=== PATIENT | male | born 1990 | race African-American/Black ===

== ENCOUNTER 2025-05-31 14:28 | Inpatient (IN) ==
--- NOTE | 2025-05-31 14:54 | Emergency Department Note ---
Impression & Plan Gastroenteritis and colitis, viral, Acute hypokalemia, Acute dehydration ED Provider Note NAME: PRANAV [id number] ARABELLA AGE: 34 SEX: M : 1990 ARRIVES VIA: Ambulance INFORMANT: Patient, facility staff ED PROVIDER(S): Gulshan Banuelos DO CHIEF COMPLAINT: Diarrhea, abnormal labs HPI: [place] transition program manager used for the entirety of the encounter. Please note that the patient's history was extremely difficult to obtain due to language barriers and transition program manager communication. This is a 34-year-old male who is otherwise healthy presenting to [facility] for further evaluation of abnormal labs. Patient is accompanied by [facility] facility staff who provide additional history. He currently resides in an [facility] facility locally. He has had generalized abdominal pain, nausea, a few episodes of emesis and frequent diarrhea. His symptoms have been ongoing for the past week. He does report international travel but unclear on the locations. They deny fever or chills. No cough or congestion. Denies chest pain or palpitations. No shortness of breath. No urinary complaints. Facility is reporting severe hypokalemia on labs. Patient denies recent changes in medications or OTC supplements. Patient offers no other complaints, today. ADDITIONAL HISTORY OBTAINED: Per HPI Chronic Medical/Social Conditions Affecting Care: Per HPI PAST MEDICAL HISTORY: See Below PAST SURGICAL HISTORY: See Below FAMILY HISTORY: See Below SOCIAL HISTORY: See Below HOME MEDICATIONS: See Below ALLERGIES: See Below VITALS: See Below PHYSICAL EXAMINATION: GENERAL: Sitting up in bed, alert, well appearing, well nourished, no distress, non-toxic EYE EXAM: normal conjunctiva. PERRL and EOM's grossly intact. OROPHARYNX: no exudate, no erythema, lips, buccal mucosa, and tongue normal and mucous membranes are dry NECK: supple, no nuchal rigidity, no adenopathy, non-tender LUNGS: Clear to auscultation. Normal chest wall mechanics HEART: no murmurs, regular rate, regular rhythm ABDOMEN: abdomen soft, non-tender, no masses, no rebound or guarding. BACK: Back is symmetrical on inspection and there is no deformity, no midline tenderness, no CVA tenderness. SKIN: no rashes and no bruising UPPER EXTREMITIES: upper extremities are grossly normal. LOWER EXTREMITIES: No pitting edema. NEURO EXAM: Normal sensorium, GCS 15, normal speech, no gross weakness of arms, no gross weakness of legs. MEDICAL DECISION MAKING: Differential diagnoses includes but not limited to viral illness, infectious diarrhea, electrolyte derangements, dehydration, appendicitis, bowel obstruction, diverticulitis, malignancy, nephrolithiasis, gastroenteritis, ACS, PNA, pancreatitis, hepatobiliary disease, UTI In summary, this is a 34 year old male who presented with diarrhea with abnormal labs. Differential as above. Nursing notes and pertinent past medical records reviewed. Vital signs reviewed and the patient is afebrile and HDS. History and presentation revealed ongoing viral illness that is consistent with viral gastroenteritis; however, I would place him at high risk for other infectious pathology including clostridium difficile. Physical examination revealed as above. As a result of my initial evaluation, IV access was established and the patient was placed on CCRM. Therapeutics ordered include IVFR and potassium replenishment. History was extremely difficult to obtain despite transition program manager. CTAP ordered for further evaluation of his symptoms. Diagnostics interpreted by me include EKG and cardiac monitoring as listed below: -Cardiac Monitoring: An order was placed for continuous cardiac monitoring. The monitor shows a rate of 60-80s with regular rhythm. -ECG: Normal sinus rhythm at a ventricular rate of [address] segment changes to suggest STEMI. Poor baseline on this EKG. Intervals appear to be within normal limits. Patient completed laboratory studies and imaging. Results independently interpreted by me are mild anemia but unclear baseline. Severe hypokalemia noted. AST and alk phos mildly elevated. Negative viral swab. Stool pathogens panel pending. The patient was managed with IV and PO replenishment of potassium ordered. IVFR was ongoing. Patient complains of ongoing issues with a diarrheal illness now with severe hypokalemia. He requires admission for IV fluid resuscitation and ongoing potassium replenishment. Ultimately, the decision was made to admit the patient for severe electrolyte derangements 2/2 GI losses in the setting of viral gastroenteritis. I discussed the case with the hospitalist service via telephone/[employer]iger[employer] and they are agreeable to admit the patient to their services. Based on the above, including the patient's age, coexisting illnesses, labs, imaging, and exam findings the decision to treat as an inpatient. I discussed the patient with the hospitalist team who recommended admission to their services. They received the medications, treatments, interventions indicated above and their condition remained guarded. I discussed my findings with the patient and their family and they understand and agree with the treatment plan. All patient / family questions were answered to their satisfaction. Consults/Care Managements Discussions: Per MDM ER treatment provided: See above Procedures:none Critical Care: None The chart was completed utilizing Share[employer] Speech voice recognition software. Grammatical errors, random word insertions, pronoun errors, and incomplete sentences are an occasional consequence of this system due to software limitations, ambient noise, and hardware issues. Any formal questions or concerns about the content, text, or information contained within the body of this dictation should be directly addressed to the physician for clarification. Past Med/Surg History Problem List (Updated 06/02/25 @ 23:57 by Gulshan Banuelos DO) Acute dehydration (Acute) Acute hypokalemia (Acute) Gastroenteritis and colitis, viral (Acute) Colitis Social History Smoking Status: Never smoker Hx Alcohol Use: No Hx Substance Use: No Preferred Language: [place] Communication Tools: IPad and Other Rehab Technician Required: Yes Beliefs That Will Affect Care: None Current Living Situation: Other Feels Safe at Home: Yes Assistive Devices: None Allergies Allergies Allergy/AdvReac Type Severity Reaction Status Date / Time No Known Allergies Allergy Unverified 05/31/25 15:53 Home Meds Home Medications Medication Instructions Recorded Confirmed omeprazole 20 mg tablet,delayed 20 mg PO DAILY 05/31/25 05/31/25 release Results & Data (ED) Vital Signs Vital Signs - 24 hr 05/31/25 14:22 05/31/25 14:32 05/31/25 14:54 Temperature 36.9 C Temperature Source Oral Pulse Rate 88 71 Pulse Rate from SpO2 Sensor Respiratory Rate 19 17 Respiratory Effort / Characteristics Non-Labored Spontaneous Respiratory Depth Normal Blood Pressure 148/100 H Blood Pressure Mean 116 Pulse Oximetry 97 96 Oxygen Delivery Method Room Air Room Air Sepsis Recent Fever Within 48 Hours No Sepsis New/Unexplained Change in Mental Status No Sepsis Action Taken by Nursing No Action Required 05/31/25 15:00 05/31/25 15:12 05/31/25 15:21 Temperature Temperature Source Pulse Rate 74 63 64 Pulse Rate from SpO2 Sensor Respiratory Rate 15 16 21 Respiratory Effort / Characteristics Respiratory Depth Blood Pressure 148/100 H Blood Pressure Mean 116 Pulse Oximetry 98 Oxygen Delivery Method Sepsis Recent Fever Within 48 Hours Sepsis New/Unexplained Change in Mental Status Sepsis Action Taken by Nursing 05/31/25 15:26 05/31/25 15:30 05/31/25 15:30 Temperature Temperature Source Pulse Rate 66 Pulse Rate from SpO2 Sensor Respiratory Rate Respiratory Effort / Characteristics Respiratory Depth Blood Pressure 127/87 127/87 Blood Pressure Mean 94 94 Pulse Oximetry Oxygen Delivery Method Sepsis Recent Fever Within 48 Hours Sepsis New/Unexplained Change in Mental Status Sepsis Action Taken by Nursing 05/31/25 15:30 05/31/25 15:30 05/31/25 15:30 Temperature Temperature Source Pulse Rate Pulse Rate from SpO2 Sensor Respiratory Rate Respiratory Effort / Characteristics Respiratory Depth Blood Pressure 127/87 127/87 127/87 Blood Pressure Mean 94 94 94 Pulse Oximetry Oxygen Delivery Method Sepsis Recent Fever Within 48 Hours Sepsis New/Unexplained Change in Mental Status Sepsis Action Taken by Nursing 05/31/25 15:30 05/31/25 15:42 05/31/25 15:51 Temperature Temperature Source Pulse Rate 67 71 65 Pulse Rate from SpO2 Sensor Respiratory Rate 16 16 14 Respiratory Effort / Characteristics Respiratory Depth Blood Pressure Blood Pressure Mean Pulse Oximetry 94 Oxygen Delivery Method Sepsis Recent Fever Within 48 Hours Sepsis New/Unexplained Change in Mental Status Sepsis Action Taken by Nursing 05/31/25 16:00 05/31/25 16:00 05/31/25 16:00 Temperature Temperature Source Pulse Rate Pulse Rate from SpO2 Sensor Respiratory Rate Respiratory Effort / Characteristics Respiratory Depth Blood Pressure 120/81 120/81 120/81 Blood Pressure Mean 90 90 90 Pulse Oximetry Oxygen Delivery Method Sepsis Recent Fever Within 48 Hours Sepsis New/Unexplained Change in Mental Status Sepsis Action Taken by Nursing 05/31/25 16:00 05/31/25 16:00 05/31/25 16:12 Temperature Temperature Source Pulse Rate 71 69 Pulse Rate from SpO2 Sensor 70 Respiratory Rate 15 15 Respiratory Effort / Characteristics Respiratory Depth Blood Pressure 120/81 Blood Pressure Mean 90 Pulse Oximetry 99 Oxygen Delivery Method Sepsis Recent Fever Within 48 Hours Sepsis New/Unexplained Change in Mental Status Sepsis Action Taken by Nursing 05/31/25 16:21 05/31/25 16:30 05/31/25 16:30 Temperature Temperature Source Pulse Rate 67 Pulse Rate from SpO2 Sensor 68 Respiratory Rate 16 Respiratory Effort / Characteristics Respiratory Depth Blood Pressure 132/91 132/91 Blood Pressure Mean 108 108 Pulse Oximetry 100 Oxygen Delivery Method Sepsis Recent Fever Within 48 Hours Sepsis New/Unexplained Change in Mental Status Sepsis Action Taken by Nursing 05/31/25 16:30 05/31/25 16:30 05/31/25 16:30 Temperature Temperature Source Pulse Rate Pulse Rate from SpO2 Sensor Respiratory Rate Respiratory Effort / Characteristics Respiratory Depth Blood Pressure 132/91 132/91 132/91 Blood Pressure Mean 108 108 108 Pulse Oximetry Oxygen Delivery Method Sepsis Recent Fever Within 48 Hours Sepsis New/Unexplained Change in Mental Status Sepsis Action Taken by Nursing 05/31/25 16:30 05/31/25 16:42 05/31/25 16:51 Temperature Temperature Source Pulse Rate 67 64 72 Pulse Rate from SpO2 Sensor 67 65 72 Respiratory Rate 15 14 20 Respiratory Effort / Characteristics Respiratory Depth Blood Pressure Blood Pressure Mean Pulse Oximetry 100 100 100 Oxygen Delivery Method Sepsis Recent Fever Within 48 Hours Sepsis New/Unexplained Change in Mental Status Sepsis Action Taken by Nursing 05/31/25 17:06 05/31/25 17:06 05/31/25 17:06 Temperature Temperature Source Pulse Rate Pulse Rate from SpO2 Sensor Respiratory Rate Respiratory Effort / Characteristics Respiratory Depth Blood Pressure 135/91 135/91 135/91 Blood Pressure Mean 110 110 110 Pulse Oximetry Oxygen Delivery Method Sepsis Recent Fever Within 48 Hours Sepsis New/Unexplained Change in Mental Status Sepsis Action Taken by Nursing 05/31/25 17:06 05/31/25 17:06 05/31/25 17:06 Temperature Temperature Source Pulse Rate 69 Pulse Rate from SpO2 Sensor 69 Respiratory Rate 15 Respiratory Effort / Characteristics Respiratory Depth Blood Pressure 135/91 135/91 Blood Pressure Mean 110 110 Pulse Oximetry 99 Oxygen Delivery Method Sepsis Recent Fever Within 48 Hours Sepsis New/Unexplained Change in Mental Status Sepsis Action Taken by Nursing 05/31/25 17:12 05/31/25 17:21 05/31/25 17:30 Temperature Temperature Source Pulse Rate 67 64 Pulse Rate from SpO2 Sensor 67 64 Respiratory Rate 16 18 Respiratory Effort / Characteristics Respiratory Depth Blood Pressure 127/96 Blood Pressure Mean 105 Pulse Oximetry 99 98 Oxygen Delivery Method Sepsis Recent Fever Within 48 Hours Sepsis New/Unexplained Change in Mental Status Sepsis Action Taken by Nursing 05/31/25 17:30 05/31/25 17:30 05/31/25 17:30 Temperature Temperature Source Pulse Rate Pulse Rate from SpO2 Sensor Respiratory Rate Respiratory Effort / Characteristics Respiratory Depth Blood Pressure 127/96 127/96 127/96 Blood Pressure Mean 105 105 105 Pulse Oximetry Oxygen Delivery Method Sepsis Recent Fever Within 48 Hours Sepsis New/Unexplained Change in Mental Status Sepsis Action Taken by Nursing 05/31/25 17:30 05/31/25 17:30 05/31/25 17:42 Temperature Temperature Source Pulse Rate 67 62 Pulse Rate from SpO2 Sensor 68 63 Respiratory Rate 17 31 H Respiratory Effort / Characteristics Respiratory Depth Blood Pressure 127/96 Blood Pressure Mean 105 Pulse Oximetry 99 99 Oxygen Delivery Method Sepsis Recent Fever Within 48 Hours Sepsis New/Unexplained Change in Mental Status Sepsis Action Taken by Nursing 05/31/25 17:51 05/31/25 18:00 05/31/25 18:00 Temperature Temperature Source Pulse Rate 63 Pulse Rate from SpO2 Sensor 63 Respiratory Rate 20 Respiratory Effort / Characteristics Respiratory Depth Blood Pressure 125/89 125/89 Blood Pressure Mean 94 94 Pulse Oximetry 99 Oxygen Delivery Method Sepsis Recent Fever Within 48 Hours Sepsis New/Unexplained Change in Mental Status Sepsis Action Taken by Nursing 05/31/25 18:00 05/31/25 18:00 05/31/25 18:00 Temperature Temperature Source Pulse Rate Pulse Rate from SpO2 Sensor Respiratory Rate Respiratory Effort / Characteristics Respiratory Depth Blood Pressure 125/89 125/89 125/89 Blood Pressure Mean 94 94 94 Pulse Oximetry Oxygen Delivery Method Sepsis Recent Fever Within 48 Hours Sepsis New/Unexplained Change in Mental Status Sepsis Action Taken by Nursing 05/31/25 18:00 05/31/25 18:12 05/31/25 18:21 Temperature Temperature Source Pulse Rate 67 68 67 Pulse Rate from SpO2 Sensor 65 70 64 Respiratory Rate 18 14 18 Respiratory Effort / Characteristics Respiratory Depth Blood Pressure Blood Pressure Mean Pulse Oximetry 99 99 94 Oxygen Delivery Method Sepsis Recent Fever Within 48 Hours Sepsis New/Unexplained Change in Mental Status Sepsis Action Taken by Nursing 05/31/25 18:30 05/31/25 18:30 05/31/25 18:30 Temperature Temperature Source Pulse Rate Pulse Rate from SpO2 Sensor Respiratory Rate Respiratory Effort / Characteristics Respiratory Depth Blood Pressure 128/94 128/94 128/94 Blood Pressure Mean 101 101 101 Pulse Oximetry Oxygen Delivery Method Sepsis Recent Fever Within 48 Hours Sepsis New/Unexplained Change in Mental Status Sepsis Action Taken by Nursing 05/31/25 18:30 05/31/25 18:30 05/31/25 18:30 Temperature Temperature Source Pulse Rate 65 Pulse Rate from SpO2 Sensor 65 Respiratory Rate 16 Respiratory Effort / Characteristics Respiratory Depth Blood Pressure 128/94 128/94 Blood Pressure Mean 101 101 Pulse Oximetry 98 Oxygen Delivery Method Sepsis Recent Fever Within 48 Hours Sepsis New/Unexplained Change in Mental Status Sepsis Action Taken by Nursing 05/31/25 18:42 05/31/25 18:51 05/31/25 19:00 Temperature Temperature Source Pulse Rate 65 65 Pulse Rate from SpO2 Sensor 65 65 Respiratory Rate 15 17 Respiratory Effort / Characteristics Respiratory Depth Blood Pressure 128/91 Blood Pressure Mean 112 Pulse Oximetry 99 99 Oxygen Delivery Method Sepsis Recent Fever Within 48 Hours Sepsis New/Unexplained Change in Mental Status Sepsis Action Taken by Nursing 05/31/25 19:00 05/31/25 19:00 05/31/25 19:00 Temperature Temperature Source Pulse Rate Pulse Rate from SpO2 Sensor Respiratory Rate Respiratory Effort / Characteristics Respiratory Depth Blood Pressure 128/91 128/91 128/91 Blood Pressure Mean 112 112 112 Pulse Oximetry Oxygen Delivery Method Sepsis Recent Fever Within 48 Hours Sepsis New/Unexplained Change in Mental Status Sepsis Action Taken by Nursing 05/31/25 19:00 05/31/25 19:00 05/31/25 19:33 Temperature Temperature Source Pulse Rate 68 85 Pulse Rate from SpO2 Sensor 68 Respiratory Rate 18 Respiratory Effort / Characteristics Respiratory Depth Blood Pressure 128/91 Blood Pressure Mean 112 Pulse Oximetry 98 Oxygen Delivery Method Sepsis Recent Fever Within 48 Hours Sepsis New/Unexplained Change in Mental Status Sepsis Action Taken by Nursing Laboratory Data 05/31/25 15:05 05/31/25 23:41 Lab Results 05/31/25 05/31/25 05/31/25 Range/Units 14:50 15:05 18:11 WBC 7.87 (4.8-10.8) K/ul RBC 4.96 (4.70-6.10) M/uL Hgb 13.1 L (14.0-18.0) g/dl Hct 39.2 L (42.0-52.0) % MCV 79.0 L (80.0-100.0) fL MCH 26.4 (25.0-34.0) pg MCHC 33.4 (32.0-36.0) g/dL RDW Std Deviation 44.1 (36.4-46.3) fL RDW Coeff of [place] 15.5 H (11.5-14.5) % Plt Count 414 H (130-400) K/uL MPV 8.7 L (9.4-12.4) fL Immature Gran % (Auto) 0.4 % Neut % (Auto) 69.1 % Lymph % (Auto) 21.2 % [place] % (Auto) 8.4 % Eos % (Auto) 0.5 % Baso % (Auto) 0.4 % Neut # (Auto) 5.44 (1.40-6.50) K/uL Lymph # (Auto) 1.67 (1.20-3.40) K/uL [place] # (Auto) 0.66 H (0.11-0.59) K/uL Eos # (Auto) 0.04 (0.00-0.50) K/uL Baso # (Auto) 0.03 (0.00-0.20) K/uL Immature Gran # (Auto) 0.03 (0.01-0.20) K/uL Sodium 141 (136-145) mmol/L Potassium 2.2 L* (3.5-5.1) mmol/L Chloride 104 (98-107) mmol/L Carbon Dioxide 30 (21-32) mmol/L Anion Gap 7 (3-11) BUN 10 (6-23) mg/dl Creatinine 1.02 (0.6-1.4) mg/dl Est Cr Clr Drug Dosing 88.6 ml/min eGFR 98.29 BUN/Creatinine Ratio 9.8 L (10-20) Glucose 137 H (70-99(Fasting)) mg/dl Lactate 1.5 (0.4-2.0) mmol/L Calcium 9.6 (8.6-10.3) mg/dl Magnesium 1.9 (1.7-2.4) mg/dl Total Bilirubin 0.6 (0.2-1.0) mg/dl AST 45 H (13-39) U/L ALT 21 (7-52) U/L Alkaline Phosphatase 150 H (34-104) U/L Total Protein 8.5 H (6.0-8.3) gm/dl Albumin 3.7 (3.4-5.0) gm/dl Globulin 4.8 H (2.5-4.0) gm/dl Albumin/Globulin Ratio 0.8 L (0.9-2) Lipase 32 (11-82) U/L Urine Color Yellow Urine Appearance Clear (Clear) Urine pH 7.5 (4.5-7.5) Ur Specific [place] 1.008 (1.000-1.030) Urine Protein Negative (Negative) Urine Glucose (UA) Negative (Negative) Urine Ketones Negative (Negative) Urine Blood Negative (Negative) Urine Nitrite Negative (Negative) Urine Bilirubin Negative (Negative) Urine Urobilinogen Negative (Negative) Ur Leukocyte Esterase Negative (Negative) Urine Comment Adenovirus (PCR) Not Detected (NotDetected) B. pertussis DNA (PCR) Not Detected (NotDetected) B.parapertussis DNA PCR Not Detected (NotDetected) C. pneumoniae DNA (PCR) Not Detected (NotDetected) Coronavirus OC43 (PCR) Not Detected (NotDetected) Coronavirus HKU1 (PCR) Not Detected (NotDetected) Coronavirus 229E (PCR) Not Detected (NotDetected) SARS-CoV-2 (PCR) Not Detected (NotDetected) Coronavirus NL63 (PCR) Not Detected (NotDetected) Human Metapneumovir PCR Not Detected (NotDetected) Influenza Type A (PCR) Not Detected (NotDetected) Influenza Type B (PCR) Not Detected (NotDetected) M. pneumoniae (PCR) Not Detected (NotDetected) Parainfluenza 1 (PCR) Not Detected (NotDetected) Parainfluenza 2 (PCR) Not Detected (NotDetected) Parainfluenza 3 (PCR) Not Detected (NotDetected) Parainfluenza 4 (PCR) Not Detected (NotDetected) RSV (PCR) Not Detected (NotDetected) Entero/Rhino (PCR) Not Detected (NotDetected) Administered Medications Discontinued Medications Potassium Chloride (K Dariel / Wtr) 10 meq in 100 mls @ 100 mls/hr IV Q1H DONTE Stop: 05/31/25 18:59 Last Infusion: 05/31/25 19:14 Dose: Infused Documented By: Admin: 05/31/25 18:00 Dose: 100 mls/hr Documented By: Infusion: 05/31/25 18:00 Dose: Infused Documented By: Admin: 05/31/25 17:08 Dose: 100 mls/hr Documented By: Infusion: 05/31/25 16:57 Dose: Infused Documented By: Admin: 05/31/25 15:57 Dose: 100 mls/hr Documented By: FLAVIA Magnesium Sulfate/Dextrose (Magnesium Sulfate / D5w) 1 gm in 100 mls @ 100 mls/hr IV NOW STA Stop: 05/31/25 16:51 Last Infusion: 05/31/25 17:41 Dose: Infused Documented By: Admin: 05/31/25 15:57 Dose: 100 mls/hr Documented By: FLAVIA Ioversol (Optiray 320 100ml) 90 ml IV ONCE ONE Stop: 05/31/25 17:02 Last Admin: 05/31/25 17:01 Dose: 90 ml Documented By: DARLEEN Potassium Chloride (Potassium Chloride Crtab 20 Meq Tabcr) 40 meq PO NOW STA Stop: 05/31/25 15:53 Last Admin: 05/31/25 15:57 Dose: 40 meq Documented By: FLAVIA Potassium Chloride (Potassium Chloride Crtab 20 Meq Tabcr) 40 meq PO NOW STA Stop: 05/31/25 19:51 Last Admin: 05/31/25 19:58 Dose: 40 meq Documented By: FLAVIA Imaging Data Radiologist's Impression: Abdomen/Pelvis CT 05/31/25 14:43 EXAM: CT Abdomen With Intravenous Contrast INDICATION: Abdominal pain and diarrhea TECHNIQUE: Axial computed tomography images of the abdomen with intravenous contrast. Sagittal and coronal reformatted images were created and reviewed. This CT exam was performed using one or more of the following dose reduction techniques: automated exposure control, adjustment of the mA and/or kV according to patient size, and/or use of iterative reconstruction technique. CONTRAST: 90 ml of Optiray 320 was administered intravenously. COMPARISON: No relevant prior studies available. FINDINGS: Lung bases: No nodule or consolidation. Pleural space: No pleural effusion or basilar pneumothorax. Liver: No abnormality noted. Gallbladder and bile ducts: No calcified stones or surrounding fluid. No ductal dilation. Pancreas: Poorly assessed in the absence of contrast and the presence of adjacent unopacified bowel loops. Spleen: No acute abnormality noted. Adrenals: No acute abnormality noted. Kidneys and ureters: Simple left renal cysts. No follow-up of these simple cysts is necessary. Right kidney appears normal. Stomach and bowel: Intestinal assessment limited in the absence of contrast. The colon contains a moderate amount of stool and scattered air. It appears mildly thickened without definite surrounding inflammation. Mild prominent fluid in small bowel loops without distention. No visible obstruction. Intraperitoneal space: No free air. No significant fluid collection. Bones/joints: No acute changes. Soft tissues: No acute abnormality noted. Vasculature: No abnormality noted. No abdominal aortic aneurysm. Lymph nodes: No abnormality noted. No enlarged lymph nodes. Other findings: Mildly distended urinary bladder. IMPRESSION: 1. Limited intestinal assessment demonstrating probable pancolitis and mild ileus. 2. Suboptimal assessment of the pancreas. 3. Mildly distended urinary bladder. ACT 112: N/A Electronically signed by Yael Murphy 05-31-2025 7:00 PM Discharge Plan Visit Data Chief Complaint: Referred by Doctor Stated Complaint: ABNORMAL LABS ED Provider: Gulshan Banuelos Discharge Problem: Gastroenteritis and colitis, viral, Acute hypokalemia, Acute dehydration Patient Disposition: Admitted As Inpatient Condition: Fair Discharge Instructions Interventions: ED Discharge Assessment Last Done: 05/31/25 20:58
[2025-05-31 15:28] LABS: Hematocrit (blood only) 39.2 % (42.0-52.0); Hemoglobin 13.1 g/dl (14.0-18.0); Immature Granulocytes # (auto) 0.03 K/uL (0.01-0.20); Immature Granulocytes % (auto) 0.4 %; Mean Corpuscular Hemoglobin 26.4 pg (25.0-34.0); Mean Corpuscular Volume 79.0 fL (80.0-100.0); Platelet Count 414 K/uL (130-400); RDW Standard Deviation 44.1 fL (36.4-46.3); Red Blood Count 4.96 M/uL (4.70-6.10); White Blood Count 7.87 K/ul (4.8-10.8)
[2025-05-31 15:42] LABS: Appearance Urine Clear (Clear); Glucose Urine UA Negative (Negative)
[2025-05-31 15:51] LABS: Alanine Aminotransferase 21.0 U/L (7-52); Albumin Globulin Ratio 0.8 (0.9-2); Albumin Level 3.7 gm/dl (3.4-5.0); Alkaline Phosphatase 150.0 U/L (34-104); Anion Gap 7.0 (3-11); Bilirubin,Total 0.6 mg/dl (0.2-1.0); Blood Urea Nitrogen 10.0 mg/dl (6-23); Calcium 9.6 mg/dl (8.6-10.3); Carbon Dioxide 30.0 mmol/L (21-32); Chloride 104.0 mmol/L (98-107); Creatinine Clr Calc Pharmacy 88.6 ml/min; Globulin 4.8 gm/dl (2.5-4.0); Glucose 137.0 mg/dl (70-99(Fasting)); Lipase 32.0 U/L (11-82); Magnesium 1.9 mg/dl (1.7-2.4); Potassium 2.2 mmol/L (3.5-5.1); Sodium 141.0 mmol/L (136-145); Total Protein 8.5 gm/dl (6.0-8.3)
[2025-05-31] MEDS: POTASSIUM CHLORIDE CRTAB 20 MEQ TABCR PO STA ×2 (15:57→19:58)
[2025-05-31] MEDS: MAGNESIUM SULFATE / D5W 1 GM/100 ML BAG IV STA (15:57)
[2025-05-31] MEDS: POTASSIUM CHLORIDE / WTR 10 MEQ/100 ML PLCT IV SCH (15:57)
[2025-05-31] MEDS: OPTIRAY 320 100ml IV ONE (17:01)
--- NOTE | 2025-05-31 19:01 | CT Scan Report ---
EXAM: CT Abdomen With Intravenous Contrast INDICATION: Abdominal pain and diarrhea TECHNIQUE: Axial computed tomography images of the abdomen with intravenous contrast. Sagittal and coronal reformatted images were created and reviewed. This CT exam was performed using one or more of the following dose reduction techniques: automated exposure control, adjustment of the mA and/or kV according to patient size, and/or use of iterative reconstruction technique. CONTRAST: 90 ml of Optiray 320 was administered intravenously. COMPARISON: No relevant prior studies available. FINDINGS: Lung bases: No nodule or consolidation. Pleural space: No pleural effusion or basilar pneumothorax. Liver: No abnormality noted. Gallbladder and bile ducts: No calcified stones or surrounding fluid. No ductal dilation. Pancreas: Poorly assessed in the absence of contrast and the presence of adjacent unopacified bowel loops. Spleen: No acute abnormality noted. Adrenals: No acute abnormality noted. Kidneys and ureters: Simple left renal cysts. No follow-up of these simple cysts is necessary. Right kidney appears normal. Stomach and bowel: Intestinal assessment limited in the absence of contrast. The colon contains a moderate amount of stool and scattered air. It appears mildly thickened without definite surrounding inflammation. Mild prominent fluid in small bowel loops without distention. No visible obstruction. Intraperitoneal space: No free air. No significant fluid collection. Bones/joints: No acute changes. Soft tissues: No acute abnormality noted. Vasculature: No abnormality noted. No abdominal aortic aneurysm. Lymph nodes: No abnormality noted. No enlarged lymph nodes. Other findings: Mildly distended urinary bladder. IMPRESSION: 1. Limited intestinal assessment demonstrating probable pancolitis and mild ileus. 2. Suboptimal assessment of the pancreas. 3. Mildly distended urinary bladder. ACT 112: N/A Electronically signed by Yael Murphy 05-31-2025 7:00 PM
[2025-05-31 19:13] LABS: Chlamydia pneumoniae PCR Not Detected (NotDetected); Coronavirus 229E PCR Not Detected (NotDetected); Coronavirus CoV-2 (COVID19)PCR Not Detected (NotDetected); Coronavirus HKU1 PCR Not Detected (NotDetected); Coronavirus NL63 PCR Not Detected (NotDetected); Coronavirus OC43PCR Not Detected (NotDetected); Human Metapneumovirus PCR Not Detected (NotDetected); Parainfluenza Virus 1 PCR Not Detected (NotDetected); Parainfluenza Virus 2 PCR Not Detected (NotDetected); Parainfluenza Virus 3 PCR Not Detected (NotDetected); Parainfluenza Virus 4 PCR Not Detected (NotDetected); Respiratory Syncytial VirusPCR Not Detected (NotDetected); Rhinovirus/Enterovirus PCR Not Detected (NotDetected)
[2025-05-31] MEDS ORDERED: ACETAMINOPHEN 325 MG TAB PO PRN (19:52)
[2025-05-31] MEDS ORDERED: ALUMINUM/MAGNESIUM SUSP 30 ML UDC PO PRN (19:52)
[2025-05-31] MEDS ORDERED: ONDANSETRON INJ 2 MG/ML 2 ML VIAL IV PRN (19:52)
--- NOTE | 2025-05-31 19:58 | History & Physical Report ---
Date of Service May 31, 2025 Assessment & Plan (1) Colitis: Plan Likely viral colitis Patient presents with nausea, abdominal pain, diarrhea and noted to have hypokalemia. Patient reported poor appetite prior to arrival. Labs reviewed, hypokalemia noted, CTAP with pancolitis. Patient denies febrile illness, reports improvement in his diarrhea and abdominal pain after coming to the ED. Patient given 70 mEq of potassium in the ED, additional 40 mEq added. Will repeat BMP around 10 PM to follow-up on potassium. Monitor him off of antibiotic, likely viral colitis. Stool PCR and c diff have been sent, await. Clear liquid diet, advance diet as tolerated. DVT prophylaxis: SCDs for now Full code History of Present Illness Chief Complaint: Abnormal labs Primary Care Provider: [facility] 34-year-old male with no significant past medical history was sent from [facility] due to abnormal labs, hypokalemia per guards at bedside. 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 Patient reported he was having abdominal pain and diarrhea up to 4 times a day for about a week prior to arrival, it has been gradually improving in the last 1 to 2 days, reports some nausea but denies vomiting, reports appetite has been on the lower side. Patient reported that his abdominal pain and diarrhea has gotten better since he presented to the ED. Patient denies fever/vomiting/sore throat/cough/chest pain/palpitation/pain or burning with passing urine. Patient denies smoking/alcohol/recreational drug use. Patient denies any home medications. Full code Allergies Allergy/AdvReac Type Severity Reaction Status Date / Time No Known Allergies Allergy Unverified 05/31/25 15:53 Home Medications Medication Instructions Recorded Confirmed Type omeprazole 20 mg tablet,delayed 20 mg PO DAILY 05/31/25 05/31/25 History release Past Med/Surg History Problem List (Updated 05/31/25 @ 20:10 by Rick Torrse MD) Colitis Social History Smoking Status: Never smoker Feels Safe at Home: Yes Review of Systems Review of Systems: Negative otherwise mentioned in HPI. Physical Exam Physical Exam: GENERAL: Alert and oriented x3. NAD, on RA. HEENT: No pallor, no icterus. Pupils equal, round and reactive to light. Oral mucosa moist. NECK: No JVD, no neck masses. HEART: S1 and S2 heard. Regular rate and rhythm. No murmur, no gallop. RESPIRATORY SYSTEM: Normal AP diameter. No accessory muscle use. No wheezing, no crackles. ABDOMEN: Soft, bowel sounds present, nontender, no distention. CENTRAL NERVOUS SYSTEM: No facial droop. Speech is clear. Obeys simple commands. Moves extremities. EXTREMITIES: No edema, no erythema seen. Results & Data Results & Data Vital Signs (Past 12 Hours) Vital Signs Temp Pulse Resp BP Pulse Ox O2 Del Method 05/31/25 19:33 85 05/31/25 19:00 68 18 98 05/31/25 19:00 128/91 05/31/25 19:00 128/91 05/31/25 19:00 128/91 05/31/25 19:00 128/91 05/31/25 19:00 128/91 05/31/25 18:51 65 17 99 05/31/25 18:42 65 15 99 05/31/25 18:30 65 16 98 05/31/25 18:30 128/94 05/31/25 18:30 128/94 05/31/25 18:30 128/94 05/31/25 18:30 128/94 05/31/25 18:30 128/94 05/31/25 18:21 67 18 94 05/31/25 18:12 68 14 99 05/31/25 18:00 67 18 99 05/31/25 18:00 125/89 05/31/25 18:00 125/89 05/31/25 18:00 125/89 05/31/25 18:00 125/89 05/31/25 18:00 125/89 05/31/25 17:51 63 20 99 05/31/25 17:42 62 31 H 99 05/31/25 17:30 67 17 99 05/31/25 17:30 127/96 05/31/25 17:30 127/96 05/31/25 17:30 127/96 05/31/25 17:30 127/96 05/31/25 17:30 127/96 05/31/25 17:21 64 18 98 05/31/25 17:12 67 16 99 05/31/25 17:06 69 15 99 05/31/25 17:06 135/91 05/31/25 17:06 135/05/31/25 17:06 135/05/31/25 17:06 135/05/31/25 17:06 135/05/31/25 16:51 72 20 100 05/31/25 16:42 64 14 100 05/31/25 16:30 67 15 100 05/31/25 16:30 132/91 05/31/25 16:30 132/91 05/31/25 16:30 132/91 05/31/25 16:30 132/91 05/31/25 16:30 132/91 05/31/25 16:21 67 16 100 05/31/25 16:12 69 15 99 05/31/25 16:00 71 15 05/31/25 16:00 120/81 05/31/25 16:00 120/81 05/31/25 16:00 120/81 05/31/25 16:00 120/81 05/31/25 15:51 65 14 05/31/25 15:42 71 16 05/31/25 15:30 67 16 94 05/31/25 15:30 127/87 05/31/25 15:30 127/87 05/31/25 15:30 127/87 05/31/25 15:30 127/87 05/31/25 15:30 127/87 05/31/25 15:26 66 05/31/25 15:21 64 21 05/31/25 15:12 63 16 05/31/25 15:00 74 15 148/100 H 98 05/31/25 14:54 71 17 05/31/25 14:32 96 Room Air 05/31/25 14:22 36.9 C 88 19 148/100 H 97 Room Air
[2025-06-01 00:08] LABS: Anion Gap 5.0 (3-11); Blood Urea Nitrogen 7.0 mg/dl (6-23); Calcium 8.7 mg/dl (8.6-10.3); Carbon Dioxide 31.0 mmol/L (21-32); Chloride 108.0 mmol/L (98-107); Creatinine Clr Calc Pharmacy 103.9 ml/min; Glucose 98.0 mg/dl (70-99(Fasting)); Potassium 2.6 mmol/L (3.5-5.1); Sodium 144.0 mmol/L (136-145)
[2025-06-01] MEDS: POTASSIUM CHLORIDE / WTR 10 MEQ/100 ML PLCT IV SCH ×2 (00:52→10:31)
[2025-06-01] MEDS: POTASSIUM CHLORIDE 20 MEQ/15 ML UDC PO STA (00:52)
[2025-06-01] MEDS: POTASSIUM CHLORIDE CRTAB 20 MEQ TABCR PO STA ×2 (01:53→16:45)
[2025-06-01 06:05] LABS: Adenovirus F 40/41 PCR Not Detected (NotDetected); Campylobacter PCR Not Detected (NotDetected); Enteroaggregative E.coli(EAEC) Not Detected (NotDetected); Shiga-like Toxin E.coli (STEC) Not Detected (NotDetected); Vibrio species PCR Not Detected (NotDetected)
[2025-06-01 09:01] LABS: Hematocrit (blood only) 37.3 % (42.0-52.0); Hemoglobin 12.2 g/dl (14.0-18.0); Mean Corpuscular Hemoglobin 26.2 pg (25.0-34.0); Mean Corpuscular Volume 80.2 fL (80.0-100.0); Platelet Count 381 K/uL (130-400); RDW Standard Deviation 45.6 fL (36.4-46.3); Red Blood Count 4.65 M/uL (4.70-6.10); White Blood Count 6.18 K/ul (4.8-10.8)
[2025-06-01 09:20] LABS: Alanine Aminotransferase 15.0 U/L (7-52); Albumin Globulin Ratio 0.8 (0.9-2); Albumin Level 3.5 gm/dl (3.4-5.0); Alkaline Phosphatase 131.0 U/L (34-104); Anion Gap 6.0 (3-11); Bilirubin,Total 0.8 mg/dl (0.2-1.0); Blood Urea Nitrogen 6.0 mg/dl (6-23); Calcium 9.1 mg/dl (8.6-10.3); Carbon Dioxide 30.0 mmol/L (21-32); Chloride 108.0 mmol/L (98-107); Creatinine Clr Calc Pharmacy 101.6 ml/min; Globulin 4.3 gm/dl (2.5-4.0); Glucose 137.0 mg/dl (70-99(Fasting)); Magnesium 2.1 mg/dl (1.7-2.4); Potassium 2.7 mmol/L (3.5-5.1); Sodium 144.0 mmol/L (136-145); Total Protein 7.8 gm/dl (6.0-8.3)
--- NOTE | 2025-06-01 12:11 | Hospitalist Progress Note ---
Date of Service June 01, 2025 Assessment & Plan (1) Colitis: Plan Likely viral colitis Patient presents with nausea, abdominal pain, diarrhea and noted to have hypokalemia. Patient reported poor appetite prior to arrival. Labs reviewed, hypokalemia noted, CTAP with pancolitis. Patient denies febrile illness, reports improvement in his diarrhea and abdominal pain after coming to the ED. Patient given 70 mEq of potassium in the ED, additional 40 mEq added. Will repeat BMP around 10 PM to follow-up on potassium. Monitor him off of antibiotic, likely viral colitis. Stool PCR and c diff have been sent-have been negative Clear liquid diet, advance diet as tolerated. Clinically better and diet has been started Will get stool for C. difficile toxin prior to discharge Hypokalemia Potassium level is 2.2 on admission and he received quite a few doses of intr avenous potassium since admission Potassium level remains low at 2.7 this morning Will give more intravenous potassium and IV fluid Recheck at 3 PM if normalized and the patient remains asymptomatic will be discharged DVT prophylaxis: SCDs for now Full code Admission and Anticipated Discharge Date Admission Date: May 31, 2025 Subjective 06/01/2025 The patient was seen and examined in telemetry unit He has been feeling a lot better and the diarrhea seems to have improved Denies any other significant symptomsno abdominal pain nausea no vomiting Review of Systems Review of Systems: All systems reviewed and are unremarkable except as noted below Physical Exam Physical Exam: Lying in bed without any acute distress Constitutional: well developed, well nourished and average body habitus; not ill appearing Eyes: PERRL, conjunctivae normal, anicteric sclerae ENMT: external ear and nose normal, oropharynx normal Neck: trachea midline, no thyromegaly Respiratory: no respiratory distress Auscultation: lungs clear to auscultation bilaterally Cardiovascular: Rate/Rhythm: regular rate and regular rhythm; not tachycardic Heart Sounds: normal S1 and normal S2; no murmur Extremities: no edema Gastrointestinal (Abdomen): Inspection/Auscultation: normal bowel sounds; abdomen not distended Percussion/Palpation: abdomen soft; abdomen nontender Musculoskeletal: No acute arthritis involving any of the joint Neurologic: normal touch/pain/proprioception and moves all extremities; no focal motor deficits Psychiatric: A+Ox3, euthymic affect Lymphatic: no cervical or axillary lymphadenopathy Results & Data Results & Data Vital Signs (Past 12 Hours) Vital Signs Temp Pulse Pulse Resp BP Pulse Ox O2 Del Method 06/01/25 08:04 36.7 C 65 18 121/74 98 Room Air 06/01/25 05:50 62 06/01/25 02:24 36.7 C 70 14 131/84 99 Room Air 06/01/25 01:03 68 Laboratory Results Short CBC 05/31/25 06/01/25 Range/Units 15:05 08:41 WBC 7.87 6.18 (4.8-10.8) K/ul Hgb 13.1 L 12.2 L (14.0-18.0) g/dl Hct 39.2 L 37.3 L (42.0-52.0) % Plt Count 414 H 381 (130-400) K/uL BMP 05/31/25 05/31/25 06/01/25 15:05 23:41 08:41 Sodium 141 144 144 Potassium 2.2 L* 2.6 L Chloride 104 108 H Carbon Dioxide 30 31 BUN 10 7 Creatinine 1.02 0.87 Glucose 137 H 98 Calcium 9.6 8.7 06/01/25 06/01/25 06/01/25 08:41 08:41 08:41 Sodium Cancelled Potassium 2.7 L Cancelled Chloride 108 H Cancelled Carbon Dioxide 30 BUN Creatinine Glucose Calcium 06/01/25 06/01/25 06/01/25 08:41 08:41 08:41 Sodium Potassium Chloride Carbon Dioxide Cancelled BUN 6 Cancelled Creatinine 0.89 Cancelled Glucose 137 H Calcium 06/01/25 06/01/25 08:41 08:41 Sodium Potassium Chloride Carbon Dioxide BUN Creatinine Glucose Cancelled Calcium 9.1 Cancelled Liver Function 05/31/25 06/01/25 Range/Units 15:05 08:41 Total Bilirubin 0.6 0.8 (0.2-1.0) mg/dl AST 45 H 31 (13-39) U/L ALT 21 15 (7-52) U/L Alkaline Phosphatase 150 H 131 H (34-104) U/L Albumin 3.7 3.5 (3.4-5.0) gm/dl Urine 05/31/25 Range/Units 14:50 Urine Color Yellow Urine Appearance Clear (Clear) Urine pH 7.5 (4.5-7.5) Ur Specific [place] 1.008 (1.000-1.030) Urine Protein Negative (Negative) Urine Glucose (UA) Negative (Negative) Medications Administered Current Inpatient Medications Acetaminophen (Acetaminophen 325 Mg Tab) 650 mg PO Q4H PRN PRN Reason: Pain or Fever Stop: 06/30/25 19:51 Al Hydrox/Mg Hydrox/Simethicone (Aluminum/Magnesium Susp 30 Ml Udc) 15 ml PO Q4H PRN PRN Reason: Dyspepsia Stop: 06/30/25 19:51 Potassium Chloride/Sodium Chloride (Normal Saline W/20 Meq Kcl) 20 meq in 1,000 mls @ 100 mls/hr IV .Q10H DNOTE Stop: 06/02/25 15:44 Ondansetron HCl (Ondansetron Inj 2 Mg/Ml 2 Ml Vial) 4 mg IV Q6H PRN PRN Reason: Nausea Stop: 06/30/25 19:51
[2025-06-01] MEDS: NSS + 20MEQ KCL 20 MEQ/1,000 ML BAG IV SCH (12:52)
[2025-06-01 16:18] LABS: Anion Gap 6.0 (3-11); Blood Urea Nitrogen 6.0 mg/dl (6-23); Calcium 8.5 mg/dl (8.6-10.3); Carbon Dioxide 30.0 mmol/L (21-32); Chloride 107.0 mmol/L (98-107); Creatinine Clr Calc Pharmacy 83.0 ml/min; Glucose 109.0 mg/dl (70-99(Fasting)); Potassium 2.9 mmol/L (3.5-5.1); Sodium 143.0 mmol/L (136-145)
[2025-06-01 19:27] LABS: Cdiff Toxin B Gene (2yr or >) Negative Cdiff Gene (Neg)
[2025-06-02 10:36] LABS: Anion Gap 5.0 (3-11); Calcium 8.5 mg/dl (8.6-10.3); Carbon Dioxide 30.0 mmol/L (21-32); Chloride 108.0 mmol/L (98-107); Magnesium 1.8 mg/dl (1.7-2.4); Potassium 3.0 mmol/L (3.5-5.1); Sodium 143.0 mmol/L (136-145)
--- NOTE | 2025-06-02 10:39 | Hospitalist Progress Note ---
Date of Service June 02, 2025 Assessment & Plan (1) Colitis: Plan Likely viral colitis Patient presents with nausea, abdominal pain, diarrhea and noted to have hypokalemia. Patient reported poor appetite prior to arrival. Labs reviewed, hypokalemia noted, CTAP with pancolitis. Patient denies febrile illness, reports improvement in his diarrhea and abdominal pain after coming to the ED. Patient given 70 mEq of potassium in the ED, additional 40 mEq added. Will repeat BMP around 10 PM to follow-up on potassium. Monitor him off of antibiotic, likely viral colitis. Stool PCR and c diff have been sent-have been negative Clear liquid diet, advance diet as tolerated. Clinically better and diet has been started Will get stool for C. difficile toxin prior to discharge C. difficile toxin has been negative and the diarrhea is controlled He has been tolerating regular diet and will be discharged this afternoon Elevated liver enzymes Likely secondary to viral pancolitis and is expected to improve with time Hepatitis panel has been sent He will be discharged home Hypokalemia Potassium level is 2.2 on admission and he received quite a few doses of intravenous potassium since admission Potassium level remains low at 2.7 this morning Will give more intravenous potassium and IV fluid Recheck at 3 PM if normalized and the patient remains asymptomatic will be discharged His electrolytes have been normalized and he will be discharged DVT prophylaxis: SCDs for now Full code Admission and Anticipated Discharge Date Admission Date: May 31, 2025 Subjective 06/01/2025 The patient was seen and examined in telemetry unit He has been feeling a lot better and the diarrhea seems to have improved Denies any other significant symptomsno abdominal pain nausea no vomiting 06/02/2025 The patient was seen and examined in telemetry unit He has been feeling much better and does not have any more diarrhea He has been tolerating diet and will be discharged this afternoon Review of Systems Review of Systems: All systems reviewed and are unremarkable except as noted below Physical Exam Physical Exam: Lying in bed without any acute distress Constitutional: well developed, well nourished and average body habitus; not ill appearing Eyes: PERRL, conjunctivae normal, anicteric sclerae ENMT: external ear and nose normal, oropharynx normal Neck: trachea midline, no thyromegaly Respiratory: no respiratory distress Auscultation: lungs clear to auscultation bilaterally Cardiovascular: Rate/Rhythm: regular rate and regular rhythm; not tachycardic Heart Sounds: normal S1 and normal S2; no murmur Extremities: no edema Gastrointestinal (Abdomen): Inspection/Auscultation: normal bowel sounds; abdomen not distended Percussion/Palpation: abdomen soft; abdomen nontender Neurologic: normal touch/pain/proprioception and moves all extremities; no focal motor deficits Psychiatric: A+Ox3, euthymic affect Lymphatic: no cervical or axillary lymphadenopathy Results & Data Results & Data Vital Signs (Past 12 Hours) Vital Signs Temp Pulse Pulse Resp BP Pulse Ox O2 Del Method 06/02/25 07:46 36.6 C 74 19 130/82 99 Room Air 06/02/25 03:31 36.6 C 65 20 120/76 97 Room Air 06/01/25 23:59 62 06/01/25 23:42 36.7 C 53 L 20 124/80 99 Room Air Laboratory Results [facility] 06/01/25 06/02/25 15:44 09:06 Sodium 143 143 Potassium 2.9 L 3.0 L Chloride 107 108 H Carbon Dioxide 30 30 BUN 6 Creatinine 1.09 Glucose 109 H Calcium 8.5 L 8.5 L
[2025-06-02] MEDS: POTASSIUM CHLORIDE CRTAB 20 MEQ TABCR PO STA (11:02)
[2025-06-02] MEDS: POTASSIUM CHLORIDE / WTR 10 MEQ/100 ML PLCT IV SCH (11:03)
[2025-06-02 12:24] LABS: Blood Urea Nitrogen 6.0 mg/dl (6-23); Creatinine Clr Calc Pharmacy 95.2 ml/min; Glucose 109.0 mg/dl (70-99(Fasting))
[2025-06-02 15:37] LABS: Anion Gap 4.0 (3-11); Blood Urea Nitrogen 5.0 mg/dl (6-23); Calcium 8.8 mg/dl (8.6-10.3); Carbon Dioxide 31.0 mmol/L (21-32); Chloride 108.0 mmol/L (98-107); Creatinine Clr Calc Pharmacy 107.6 ml/min; Glucose 85.0 mg/dl (70-99(Fasting)); Potassium 3.9 mmol/L (3.5-5.1); Sodium 143.0 mmol/L (136-145)
--- NOTE | 2025-06-02 15:45 | Discharge Summary ---
Date of Service June 02, 2025 Admission HPI Per Admitting Provider 34-year-old male with no significant past medical history was sent from [facility] due to abnormal labs, hypokalemia per guards at bedside. 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 Patient reported he was having abdominal pain and diarrhea up to 4 times a day for about a week prior to arrival, it has been gradually improving in the last 1 to 2 days, reports some nausea but denies vomiting, reports appetite has been on the lower side. Patient reported that his abdominal pain and diarrhea has gotten better since he presented to the ED. Patient denies fever/vomiting/sore throat/cough/chest pain/palpitation/pain or burning with passing urine. Patient denies smoking/alcohol/recreational drug use. Patient denies any home medications. Full code Admission Exam Per Admitting Provider Physical Exam: GENERAL: Alert and oriented x3. NAD, on RA. HEENT: No pallor, no icterus. Pupils equal, round and reactive to light. Oral mucosa moist. NECK: No JVD, no neck masses. HEART: S1 and S2 heard. Regular rate and rhythm. No murmur, no gallop. RESPIRATORY SYSTEM: Normal AP diameter. No accessory muscle use. No wheezing, no crackles. ABDOMEN: Soft, bowel sounds present, nontender, no distention. CENTRAL NERVOUS SYSTEM: No facial droop. Speech is clear. Obeys simple commands. Moves extremities. EXTREMITIES: No edema, no erythema seen. Principal Diagnosis Viral gastroenteritis, electrolyte imbalance Discharge Exam Lying in bed without any acute distress Constitutional well developed, well nourished and average body habitus; not ill appearing Eyes PERRL, conjunctivae normal, anicteric sclerae ENMT external ear and nose normal, oropharynx normal Neck trachea midline, no thyromegaly Respiratory no respiratory distress Auscultation: lungs clear to auscultation bilaterally Cardiovascular Rate/Rhythm: regular rate and regular rhythm; not tachycardic Heart Sounds: normal S1 and normal S2; no murmur Extremities: no edema Gastrointestinal (Abdomen) Inspection/Auscultation: normal bowel sounds; abdomen not distended Percussion/Palpation: abdomen soft; abdomen nontender Neurologic normal touch/pain/proprioception and moves all extremities; no focal motor deficits Psychiatric A+Ox3, euthymic affect Lymphatic no cervical or axillary lymphadenopathy Discharge Data Allergies Allergy/AdvReac Type Severity Reaction Status Date / Time No Known Allergies Allergy Unverified 05/31/25 15:53 Consultations 05/31/25 19:59 ED Decision to Admit Stat Ordered Studies 05/31/25 14:43 CT abd pelvis IV con only Stat Hospital Course (1) Colitis: Plan Likely viral colitis Patient presents with nausea, abdominal pain, diarrhea and noted to have hypokalemia. Patient reported poor appetite prior to arrival. Labs reviewed, hypokalemia noted, CTAP with pancolitis. Patient denies febrile illness, reports improvement in his diarrhea and abdominal pain after coming to the ED. Patient given 70 mEq of potassium in the ED, additional 40 mEq added. Will repeat BMP around 10 PM to follow-up on potassium. Monitor him off of antibiotic, likely viral colitis. Stool PCR and c diff have been sent-have been negative Clear liquid diet, advance diet as tolerated. Clinically better and diet has been started Will get stool for C. difficile toxin prior to discharge C. difficile toxin has been negative and the diarrhea is controlled He has been tolerating regular diet and will be discharged this afternoon Elevated liver enzymes Likely secondary to viral pancolitis and is expected to improve with time Hepatitis panel has been sent He will be discharged home Hepatic enzymes came out to be normal and no hepatitis panel was sent for this patient Hypokalemia Potassium level is 2.2 on admission and he received quite a few doses of intravenous potassium since admission Potassium level remains low at 2.7 this morning Will give more intravenous potassium and IV fluid Recheck at 3 PM if normalized and the patient remains asymptomatic will be discharged His electrolytes have been normalized and he will be discharged DVT prophylaxis: SCDs for now Full code Total Time Total Time Spent Total Time Spent (In Minutes): 35 Minutes Discharge Plan Discharge Items Patient Disposition: Home - Self-Care Reason For Visit: HYPOKALEMIA Discharge Diagnosis: Viral gastroenteritis, electrolyte imbalance Activity: Resume your previous activity Non-emergency contact: Primary Care Provider Call non-emergency contact if: you have any medication questions and your symptoms worsen Follow-up/Referrals: [facility] [Primary Care Provider] - Diet: Regular Addtl Attending Provider Instructions: Fruits and banana have a lot of potassium Advised to take potassium pill [id number] 20 mg daily Pending Studies at Discharge: No Stand-Alone Forms: My [facility], Smoking Cessation Medications and DC Order Prescriptions: New potassium chloride 20 mEq tablet extended release 20 meq PO DAILY Qty: 30 0RF Continued omeprazole 20 mg Tablet,Delayed Release (Dr/Ec) 20 mg PO DAILY Discharge Orders: Discharge Order (Routine); Ordered 06/02/25 Ordered By: Jayashree Mcgee Admission Data Admit Date/Time: 05/31/25 19:52 Attending Provider: Jayashree Mcgee Admit Provider: Rick Torres Primary Care Provider: [facility] Other Providers: Rick Torres
[2025-06-02 16:00] VITALS: BP 124/83; PULSE 66; RESP 17; TEMP 98.1; O2SAT 99
--- NOTE | 2025-06-03 10:21 | Electrocardiogram Report ---
Test Reason : Blood Pressure : */* mmHG Vent. Rate : 77 BPM Atrial Rate : 77 BPM P-R Int : 118 ms QRS Dur : 84 ms QT Int : 394 ms P-R-T Axes : 34 14 28 degrees QTcB Int : 445 ms Normal sinus rhythm Normal ECG No previous ECGs available Confirmed by Taco Davenport ([id number]) on 06/03/2025 10:21:12 AM Referred By: Confirmed By: Taco Davenport
== END 2025-06-02 17:53 | DRG 641 ==
LOC: ED 14:28 → 2S 19:52 → SUATTDRO 19:52 → 2S 20:58